=== PATIENT | male | born 1955 | race Caucasian/White ===

== ENCOUNTER 2018-10-09 20:37 | Emergency (ER) | payer MEDICARE, OTHER ==
--- NOTE | 2018-10-09 20:50 | EDM.PDOC ---
ED HPI GENERAL MEDICAL PROBLEM - General Chief Complaint: General Stated Complaint: fall with head injury Time Seen by Provider: 10/09/18 20:50 Source of Information: Reports: Patient, EMS, Group Home Records History Limitations: Reports: No Limitations - History of Present Illness INITIAL COMMENTS - FREE TEXT/NARRATIVE: in by EMS where he lost balance and fell backward striking the back of his head , did have a brief LOC, denies, YUAN, no change in vision, no neck/back pain or stiffness, no NV, no hip or pelvis pain, no abd pain, no other sx Onset: Today Duration: Minutes: Location: Reports: Head Quality: Reports: Ache Severity: Mild Improves with: Reports: None Worsens with: Reports: None Context: Reports: Trauma Associated Symptoms: Denies: Headaches, Nausea/Vomiting, Seizure, Shortness of Breath, Syncope, Weakness Treatments 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: Other (see below) (dressing) - Related Data Allergies Allergy/AdvReac Type Severity Reaction Status Date / Time No Known Allergies Allergy Verified 10/09/18 21:26 Home Meds: Home Meds Aspirin [Adult Low Dose Aspirin EC] 81 mg PO DAILY 10/09/18 [History] Calcium Polycarbophil [Fiber Tabs] 625 mg PO BID 10/09/18 [History] Dextran 70/Hypromellose [Artificial Tears Eye Drops] 1 drop EYEBOTH BID [History] Fish Oil/[place]-3 Fatty Acids [Fish Oil 1,000 MG] 1 cap PO DAILY 10/09/18 [ History] Furosemide [Lasix] 60 mg PO DAILY 10/09/18 [History] Insulin Aspart [NovoLOG] 12 unit SQ ACBREAKFAST 10/09/18 [History] Insulin Aspart [NovoLOG] 15 units SQ WITHLUNCH 10/09/18 [History] Insulin Aspart [NovoLOG] 18 unit SQ WITHDINNER 10/09/18 [History] Insulin Glargine,Hum.Rec.Anlog [Lantus Solostar] 55 unit SQ DAILY 10/09/18 [ History] Liraglutide [Victoza 3-Wale] 1.8 mg SQ DAILY 10/09/18 [History] Lisinopril 20 mg PO DAILY 10/09/18 [History] Metoprolol Tartrate [Lopressor] 25 mg PO Q12HR 10/09/18 [History] Multivit with Calcium,Iron,Min [Essential Daily] 1 each PO DAILY 10/09/18 [ History] Polyethylene Glycol 3350 [MiraLAX] 17 gm PO DAILY 10/09/18 [History] Ranitidine [Zantac] 1 tab PO DAILY 10/09/18 [History] Sertraline [Zoloft] 100 mg PO DAILY 10/09/18 [History] Tamsulosin [Flomax] 1 tab PO BEDTIME 10/09/18 [History] amLODIPine Besylate [Amlodipine Besylate] 10 mg PO DAILY 10/09/18 [History] atorvaSTATin [Lipitor] 40 mg PO BEDTIME 10/09/18 [History] levETIRAcetam [Keppra] 500 mg PO BID 10/09/18 [History] traZODone HCl [Trazodone HCl] 25 mg PO BEDTIME 10/09/18 [History] Past Medical History Cardiovascular History: Reports: High Cholesterol, Hypertension Neurological History: Reports: CVA Endocrine/Metabolic History: Reports: Diabetes, Type II Social & Family History - Family History Oncologic: Reports: Other (See Below) (breast ca) - Tobacco Use Smoking Status *Q: Former Smoker (cigars, none x 7 years) - Alcohol Use Alcohol Use History: Yes Alcohol Use in Last Twelve Months: No Alcohol Use Comment: none x 7 years - Recreational Drug Use Recreational Drug Use: No - Living Situation & Occupation Living situation: Reports: Single, Extended Care Facility Occupation: Disabled ED ROS GENERAL - Review of Systems Review Of Systems: See Below Constitutional: Denies: Fever, Chills, Weakness HEENT: Reports: No Symptoms Respiratory: Reports: No Symptoms. Denies: Shortness of Breath Cardiovascular: Reports: No Symptoms. Denies: Chest Pain Endocrine: Reports: No Symptoms GI/Abdominal: Denies: Abdominal Pain, Nausea, Vomiting Musculoskeletal: Reports: No Symptoms. Denies: Neck Pain, Back Pain Skin: Reports: Wound (7cm laceration back of head) Neurological: Reports: No Symptoms. Denies: Dizziness, Headache, Numbness, Seizure, Change in Speech Psychiatric: Reports: No Symptoms ED EXAM, GENERAL - Physical Exam Exam: See Below Exam Limited By: No Limitations General Appearance: Alert, WD/WN, No Apparent Distress, Obese Eye Exam: Bilateral Eye: EOMI, PERRL Ears: Normal External Exam Nose: Normal Inspection Throat/Mouth: Normal Inspection, Normal Lips Head: Normocephalic, Other (scalp laceration) Neck: Normal Inspection, Supple, Non-Tender, Full Range of Motion Respiratory/Chest: No Respiratory Distress, Lungs Clear, Normal Breath Sounds Cardiovascular: Normal Peripheral Pulses, Regular Rate, Rhythm Peripheral Pulses: 2+: Radial (L) GI/Abdominal: Soft, Non-Tender Back Exam: Normal Inspection, Full Range of Motion. No: Vertebral Tenderness Extremities: Normal Inspection, Normal Range of Motion, Non-Tender, Normal Capillary Refill Neurological: Alert, Oriented, CN II-XII Intact, Normal Cognition, No Motor/ Sensory Deficits Psychiatric: Normal Affect, Normal Mood Skin Exam: Warm, Dry, Normal Color, Other (7cm laceration back of head). No: Intact ED GENERAL MEDICAL PROCEDURES - Laceration/Wound Repair Posterior Head Appearance: Subcutaneous, Linear, Clean Distal NVT: Neuro & Vascular Intact Anesthetic Type: Local Local Anesthesia - Lidocaine (Xylocaine): 1% Plain Local Anesthetic Volume: 5cc Skin Prep: Saline Exploration/Debridement/Repair: Wound Explored, In a Bloodless Field, Explored to Base, No Foreign Material Found Closed with: [place] # of Sutures: 9 Sterile Dressing Applied: Provider Tetanus Status Addressed: Yes Complications: No Course - Vital Signs Last Recorded V/S: Last Vital Signs Temp 37.1 C 10/09/18 20:51 Pulse 92 10/09/18 20:51 Resp 18 10/09/18 20:51 BP 115/57 L 10/09/18 20:51 Pulse Ox 97 10/09/18 20:51 - Orders/Labs/Meds Orders: Active Orders 24 hr Category Date Time Status Cervical Spine wo Cont [CT] Stat Exams 10/09/18 20:50 Taken Head wo Cont [CT] Stat Exams 10/09/18 20:50 Taken CBC WITH AUTO DIFF [HEME] Stat Lab 10/09/18 21:53 Ordered COMPREHENSIVE METABOLIC PN,CMP [CHEM] Stat Lab 10/09/18 21:53 Ordered INR,PT,PROTHROMBIN TIME [COAG] Stat Lab 10/09/18 21:53 Ordered PTT,PARTIAL THROMBOPLSTIN TIME [COAG] Stat Lab 10/09/18 21:53 Ordered Meds: Medications Discontinued Medications Generic Name Dose Route Start Last Admin Trade Name Freq PRN Reason Stop Dose Admin Lidocaine HCl Confirm 10/09/18 20:59 10/09/18 22:02 Xylocaine 1% Administered 10/09/18 21:00 Not Given Dose 20 ml .ROUTE .STK-MED ONE Lidocaine HCl 20 ml 10/09/18 21:35 10/09/18 22:02 Xylocaine 1% INJECT 10/09/18 21:36 20 ml ONETIME ONE Administration Departure - Departure Time of Disposition: 22:11 Disposition: Home, Self-Care 01 Condition: Good Clinical Impression: Fall, Closed head injury, Scalp laceration, Subarachnoid bleed - Discharge Information *PRESCRIPTION DRUG MONITORING PROGRAM REVIEWED*: Not Applicable *COPY OF PRESCRIPTION DRUG MONITORING REPORT IN PATIENT CONNIE: Not Applicable Instructions: Laceration Care, Adult, Head Injury, Adult, [id number], Laceration Care, Adult, [id number] Forms: ED Department Discharge Additional Instructions: keep wound clean and dry apply a thin coat of neosporin ointment 3 x a day recheck wound on friday with intermediate provider return to the ED as needed follow all instructions Follow up with Dr. Garner the neuro surgeon at [facility] in [facility] in 2 weeks ED Communication - Conversation Summary Summary Comment: [id number] received a call from the radiologist who advised that the pt does have an acute bleed, [facility] in [place] called, spoke to Erika in the transfer center, will call neuro surg. [id number] Garner who advised that the pt can be dc back to the intermediate and f/u in his office in 2 weeks, When questioned about the bleed and further evalaution, he advised no further evalaution unless he has a change in LOC, - Problem List & Annotations (1) Closed head injury SNOMED Code(s): 130460337524 Code(s): S09.90XA - UNSPECIFIED INJURY OF HEAD, INITIAL ENCOUNTER Status: Acute Priority: High Qualifiers: Encounter type: initial encounter Qualified Code(s): S09.90XA - Unspecified injury of head, initial encounter (2) Fall SNOMED Code(s): 8802555, 602021713 Code(s): W19.XXXA - UNSPECIFIED FALL, INITIAL ENCOUNTER Status: Acute Priority: High Qualifiers: Encounter type: initial encounter Qualified Code(s): W19.XXXA - Unspecified fall, initial encounter (3) Scalp laceration SNOMED Code(s): 053170432 Code(s): S01.01XA - LACERATION WITHOUT FOREIGN BODY OF SCALP, INITIAL ENCOUNTER Status: Acute Priority: High Qualifiers: Encounter type: initial encounter Qualified Code(s): S01.01XA - Laceration without foreign body of scalp, initial encounter (4) Subarachnoid bleed SNOMED Code(s): 166612890 Code(s): I60.9 - NONTRAUMATIC SUBARACHNOID HEMORRHAGE, UNSPECIFIED Status: Acute - Problem List Review Problem List Initiated/Reviewed/Updated: Yes - My Orders Last 24 Hours: My Active Orders 10/09/18 20:50 Cervical Spine wo Cont [CT] Stat Head wo Cont [CT] Stat 10/09/18 21:53 CBC WITH AUTO DIFF [HEME] Stat COMPREHENSIVE METABOLIC PN,CMP [CHEM] Stat INR,PT,PROTHROMBIN TIME [COAG] Stat PTT,PARTIAL THROMBOPLSTIN TIME [COAG] Stat - Assessment/Plan Last 24 Hours: My Active Orders 10/09/18 20:50 Cervical Spine wo Cont [CT] Stat Head wo Cont [CT] Stat 10/09/18 21:53 CBC WITH AUTO DIFF [HEME] Stat COMPREHENSIVE METABOLIC PN,CMP [CHEM] Stat INR,PT,PROTHROMBIN TIME [COAG] Stat PTT,PARTIAL THROMBOPLSTIN TIME [COAG] Stat Plan: dc back to the intermediate per the neuro surg Dr Garner at [facility] is [place] BRAVO see DC instruction
[2018-10-09] MEDS ORDERED: Lidocaine 1% 20 ML MDV ONE (20:59)
[2018-10-09] MEDS ORDERED: Lidocaine 1% 20 ML MDV INJECT ONE (21:35)
== END 2018-10-09 23:20 | disposition home or self-care (01) ==
LOC: CC.ED 20:37
DX: S06.6X9A Traumatic subarachnoid hemorrhage with loss of consciousness of unspecified duration, initial encounter (principal); S01.01XA Laceration without foreign body of scalp, initial encounter; E11.9 Type 2 diabetes mellitus without complications; I10 Essential (primary) hypertension; E78.00 Pure hypercholesterolemia, unspecified; Z79.4 Long term (current) use of insulin; Z79.899 Other long term (current) drug therapy; Z79.82 Long term (current) use of aspirin; Z86.73 Personal history of transient ischemic attack (TIA), and cerebral infarction without residual deficits; Z87.891 Personal history of nicotine dependence; W19.XXXA Unspecified fall, initial encounter
CPT/HCPCS: 12002; 36415; 70450; 72125; 80053; 85025; 85610; 85730; 99285; J2001; 99284